=== PATIENT | male | born 1965 | race African-American/Black ===

== ENCOUNTER 2018-04-08 17:32 | Inpatient (IN) | payer OTHER ==
[2018-04-08 17:51] VITALS: BMI 22.8
--- NOTE | 2018-04-08 18:43 | HP ---
CIWA Score Nausea/Vomitin-Mild Nausea/No Vomiting Muscle Tremors: 4-Moderate,w/Arms Extend Anxiety: 2 Agitation: 2 Paroxysmal Sweats: 1-Minimal Palms Moist Orientation: 0-Oriented Tacttile Disturbances: 0-None Auditory Disturbances: 0-None Visual Disturbances: 0-None Headache: 2-Mild CIWA-Ar Total Score: 12 - Admission Criteria OASAS Guidelines: Admission for Medically Managed Detox: Requires at least one of the followin. CIWA greater than 12 2. Seizures within the past 24 hours 3. Delirium tremens within the past 24 hours 4. Hallucinations within the past 24 hours 5. Acute intervention needed for co occurring medical disorder 6. Acute intervention needed for co occurring psychiatric disorder 7. Severe withdrawal that cannot be handled at a lower level of care (continued vomiting, continued diarrhea, abnormal vital signs) requiring intravenous medication and/or fluids 8. Patient presents the following: CIWA greater than 12 Admission Criteria Met: Admission criteria met Admission ROS BHS - HPI Chief Complaint: Here for alcohol detox- no h/o seizures, DT's. Has been to detox and rehab for alcohol several times- last time 05/2017- at [facility] alcohol- drinks 4-5 pints of beth, last drink was today. Lives in [facility] Smokes cigs and occ cocaine No medical problems not on any meds DUR- shows no controlled substances Utox- negative for illicits EMELY- 0.190 Allergies/Adverse Reactions: Allergies Allergy/AdvReac Type Severity Reaction Status Date / Time No Known Drug Allergies Allergy Verified 08/28/15 14:10 pork derived (porcine) AdvReac Verified 08/28/15 14:10 seafood Allergy Uncoded 08/28/15 14:10 - Ebola screening Have you traveled outside of the country in the last 21 days: No Have you had contact with anyone from an Ebola affected area: No Have you been sick,other than usual withdrawal symptoms: No Do you have a fever: No Patient History - Patient Medical History Hx Anemia: No Hx Asthma: No Hx Chronic Obstructive Pulmonary Disease (COPD): No Hx Cancer: No Hx Cardiac Disorders: No Hx Congestive Heart Failure: No Hx Hypertension: Yes (NOT ON MEDS...NEVER FILLED RX) Hx Hypercholesterolemia: No Hx Pacemaker: No HX Cerebrovascular Accident: No Hx Seizures: No Hx Dementia: No Hx Diabetes: No Hx Gastrointestinal Disorders: No Hx Liver Disease: No Hx Genitourinary Disorders: No Hx Sexually Transmitted Disorders: No Hx Renal Disease (ESRD): No Hx Thyroid Disease: No Hx Human Immunodeficiency Virus (HIV): No (NEGATIVE HX) Hx Hepatitis C: No Hx Depression: No Hx Suicide Attempt: No (DENIES) Hx Bipolar Disorder: No Hx Schizophrenia: No - Patient Surgical History Past Surgical History: Yes Hx Neurologic Surgery: No Hx Cataract Extraction: No Hx Cardiac Surgery: No Hx Lung Surgery: No Hx Breast Surgery: No Hx Breast Biopsy: No Hx Abdominal Surgery: No Hx Appendectomy: No Hx Cholecystectomy: No Hx Genitourinary Surgery: No Hx Section: No Hx Orthopedic Surgery: No Other Surgical History: TONSILLECTOMY, BLEEDING ULCERS- 1999 - PPD History Documented Results: Negative w/o proof Date: 06/10/15 Results: 0 MM - Smoking Cessation Smoking history: Current every day smoker Have you smoked in the past 12 months: Yes Aproximately how many cigarettes per day: 20 Hx Chewing Tobacco Use: No Initiated information on smoking cessation: Yes 'Breaking Loose' booklet given: 04/09/18 - Substances Abused Alcohol Route: Oral Frequency: Daily Amount used: 1 PINT + 4/24OZ CAN BEER Age of first use: 12 Date of Last Use: 04/08/18 Family Disease History - Family Disease History Family History: Denies (denies family hx of med problems) Admission Physical Exam [facility] - Vital Signs Vital Signs: Vital Signs - 24 hr 04/08/18 17:50 Temperature 98.8 F Pulse Rate 97 H Respiratory 18 Rate Blood Pressure 140/103 H - Physical General Appearance: Yes: Within Normal Limits HEENTM: Yes: Within Normal Limits Respiratory: Yes: Within Normal Limits Neck: Yes: Within Normal Limits Cardiology: Yes: Within Normal Limits Abdominal: Yes: Within Normal Limits Genitourinary: Yes: Within Normal Limits Back: Yes: Within Normal Limits Musculoskeletal: Yes: Within Normal Limits Extremities: Yes: Within Normal Limits Neurological: Yes: Within Normal Limits Integumentary: Yes: Within Normal Limits Lymphatic: Yes: Within Normal Limits - Diagnostic (1) Alcohol dependence with uncomplicated withdrawal Current Visit: No Status: Acute (2) Cocaine dependence Current Visit: No Status: Acute Qualifiers: Substance use status: uncomplicated Qualified Code(s): F14.20 - Cocaine dependence, uncomplicated Cleared for Admission [facility] - Detox or Rehab [facility] Level of Care: Medically Managed [facility] Breath Alcohol Content Breath Alcohol Content: 0.190 Urine Drug Screen - Results Drug Screen Negative: Yes
[2018-04-08] MEDS ORDERED: chlordiazePOXIDE HCL 25 MG CAPSULE PO PRN (18:49)
[2018-04-08] MEDS ORDERED: ACETAMINOPHEN 325 MG TABLET (FP) PO PRN (18:51)
[2018-04-08] MEDS ORDERED: LOPERAMIDE HCL 2 MG CAPSULE PO PRN (18:51)
[2018-04-08] MEDS ORDERED: guaiFENesin/D-METHORPHAN HB 10 ML UNIT-DOSE CUPS PO PRN (18:51)
[2018-04-08] MEDS ORDERED: MENTHOL/PHENOL 1 EACH UD MM PRN (18:51)
[2018-04-08] MEDS ORDERED: P-EPHED 60MG/TRIPROLIDI 2.5MG TABLET PO PRN (18:51)
[2018-04-08] MEDS ORDERED: MAGNESIUM HYDROX 2400MG/30ML ORAL SUSPENSION 30 ML CUP PO PRN (18:51)
[2018-04-08] MEDS ORDERED: IBUPROFEN 400 MG TABLET (FP) PO PRN (18:51)
[2018-04-08] MEDS ORDERED: MAGNESIUM CITRATE 300 ML BOTTLE PO PRN (18:51)
[2018-04-08] MEDS ORDERED: hydrOXYzine PAMOATE 25 MG CAPSULE (FP) PO PRN (18:51)
[2018-04-08] MEDS ORDERED: MAG HYDROX/AL HYDROX/SIMETH 30 ML UNIT-DOSE CUP PO PRN (18:51)
[2018-04-08] MEDS: THIAMINE HCL 100 MG TABLET (FP) PO SCH (21:50)
[2018-04-08] MEDS ORDERED: MELATONIN 5 MG TABLETS PO PRN (22:00)
[2018-04-08] MEDS: chlordiazePOXIDE HCL 25 MG CAPSULE PO SCH (22:02)
[2018-04-09] MEDS: chlordiazePOXIDE HCL 25 MG CAPSULE PO SCH ×3 (05:14→17:29)
[2018-04-09] MEDS: PRENATAL VITAMINS W/ FOLIC ACID TABLET (FP) PO SCH (10:03)
[2018-04-09 10:17] LABS: URINE APPEARANCE CLEAR; URINE BILIRUBIN NEGATIVE (<2.0 mg/dL); URINE COLOR COLORLESS; URINE GLUCOSE (UA) NEGATIVE (NEGATIVE); URINE KETONE NEGATIVE (NEGATIVE); URINE LEUK ESTERASE NEGATIVE (NEGATIVE); URINE NITRITE NEGATIVE (NEGATIVE); URINE PROTEIN NEGATIVE (NEGATIVE); URINE UROBILINOGEN NEGATIVE mg/dL (0.2-1.0)
--- NOTE | 2018-04-09 10:22 | PN ---
BHS CIWA - CIWA Score Nausea/Vomitin Muscle Tremors: 2 Anxiety: 2 Agitation: 2 Paroxysmal Sweats: 1-Minimal Palms Moist Orientation: 0-Oriented Tacttile Disturbances: 1-Very Mild Itch/Numbness Auditory Disturbances: 1-Very Mild Visual Disturbances: 0-None Headache: 2-Mild CIWA-Ar Total Score: 13 BHS Progress Note (SOAP) Subjective: alert,irritable,anxious,interrupted sleep Objective: 04/09/18 10:22 Vital Signs Temperature 98.7 F 04/09/18 09:50 Pulse Rate 86 04/09/18 09:50 Respiratory Rate 16 04/09/18 09:50 Blood Pressure 133/79 04/09/18 09:50 O2 Sat by Pulse Oximetry (%) 04/09/18 10:22 labs pending Assessment: 04/09/18 10:28 withdrawal symptom Plan: continue detox
[2018-04-09 11:02] LABS: HEMATOCRIT 45.8 % (35.4-49); HEMOGLOBIN 14.7 GM/dL (11.7-16.9); MCH 29.5 pg (25.7-33.7); MCHC 32.1 g/dl (32.0-35.9); MEAN CELL VOLUME 91.7 fl (80-96); MEAN PLT VOLUME 7.9 fl (7.5-11.1); PLATELET COUNT 276 K/MM3 (134-434); RBC 4.99 M/mm3 (4.00-5.60); RDW 14.1 % (11.9-15.9); WHITE BLOOD COUNT 3.9 K/mm3 (4.0-10.0)
[2018-04-09 11:12] LABS: ALBUMIN 3.2 g/dl (3.4-5.0); ALK PHOS 71 U/L (45-117); ANION GAP 5 MMOL/L (8-16); BILIRUBIN,TOTAL 0.6 mg/dL (0.2-1); BLOOD UREA NITROGEN 12 mg/dL (7-18); CHLORIDE 111 mmol/L (98-107); CO2 26 mmol/L (21-32); GLUCOSE,RANDOM 71 mg/dL (74-106); POTASSIUM 4.3 mmol/L (3.5-5.1); SGOT/AST 22 U/L (15-37); SGPT/ALT 22 U/L (13-61); SODIUM 142 mmol/L (136-145); TOT PROT 5.8 g/dl (6.4-8.2)
[2018-04-09] MEDS: THIAMINE HCL 100 MG TABLET (FP) PO SCH (22:44)
[2018-04-09] MEDS: chlordiazePOXIDE 5 MG CAPSULE PO SCH (22:44)
[2018-04-10] MEDS: chlordiazePOXIDE 5 MG CAPSULE PO SCH ×4 (05:14→22:34)
[2018-04-10] MEDS: PRENATAL VITAMINS W/ FOLIC ACID TABLET (FP) PO SCH (10:15)
--- NOTE | 2018-04-10 12:06 | PN ---
[facility] CIWA - CIWA Score Nausea/Vomitin-No Nausea/No Vomiting Muscle Tremors: 3 Anxiety: 4-Mod. Anxious/Guarded Agitation: 3 Paroxysmal Sweats: 1-Minimal Palms Moist Orientation: 0-Oriented Tacttile Disturbances: 0-None Auditory Disturbances: 0-None Visual Disturbances: 0-None Headache: 0-None Present CIWA-Ar Total Score: 11 BHS Progress Note (SOAP) Subjective: REPORTS DETOX PROCEEDING WELL. TOLERATING MEDS WELL. SLIGHT TREMORS AND ANXIETY. Objective: 04/10/18 12:05 Vital Signs 04/10/18 06:08 Temperature 96.2 F L Pulse Rate 63 Respiratory 18 Rate Blood Pressure 160/106 H Laboratory Tests 04/08/18 04/09/18 04/09/18 08:00 07:00 07:00 WBC 3.9 L RBC 4.99 Hgb 14.7 Hct 45.8 MCV 91.7 MCH 29.5 MCHC 32.1 RDW 14.1 D Plt Count 276 MPV 7.9 Sodium 142 Potassium 4.3 Chloride 111 H Carbon Dioxide 26 Anion Gap 5 L BUN 12 Creatinine 1.0 Creat Clearance w eGFR > 60 Random Glucose 71 L Calcium 8.0 L Total Bilirubin 0.6 AST 22 ALT 22 Alkaline Phosphatase 71 Total Protein 5.8 L Albumin 3.2 L Urine Color Colorless Urine Appearance Clear Urine pH 5.0 Ur Specific Isabella 1.004 L Urine Protein Negative Urine Glucose (UA) Negative Urine Ketones Negative Urine Blood Negative Urine Nitrite Negative Urine Bilirubin Negative Urine Urobilinogen Negative Ur Leukocyte Esterase Negative RPR Titer HIV 1&2 Antibody Screen HIV P24 Antigen 04/09/18 04/09/18 07:00 07:00 WBC RBC Hgb Hct MCV MCH MCHC RDW Plt Count MPV Sodium Potassium Chloride Carbon Dioxide Anion Gap BUN Creatinine Creat Clearance w eGFR Random Glucose Calcium Total Bilirubin AST ALT Alkaline Phosphatase Total Protein Albumin Urine Color Urine Appearance Urine pH Ur Specific Isabella Urine Protein Urine Glucose (UA) Urine Ketones Urine Blood Urine Nitrite Urine Bilirubin Urine Urobilinogen Ur Leukocyte Esterase RPR Titer Nonreactive HIV 1&2 Antibody Screen Negative HIV P24 Antigen Negative Assessment: 04/10/18 12:05 WITHDRAWAL SX Plan: CONTINUE DETOX INCREASE PO FLUIDS
[2018-04-10] MEDS: THIAMINE HCL 100 MG TABLET (FP) PO SCH (22:34)
[2018-04-11] MEDS: chlordiazePOXIDE 5 MG CAPSULE PO SCH ×4 (05:14→22:12)
[2018-04-11] MEDS: PRENATAL VITAMINS W/ FOLIC ACID TABLET (FP) PO SCH (10:22)
--- NOTE | 2018-04-11 14:04 | PN ---
BHS Progress Note (SOAP) Subjective: Anxious, sweat Objective: 04/11/18 14:03 Last Vital Signs Temp Pulse Resp BP Pulse Ox 97.4 F L 79 18 130/85 04/11/18 11:01 04/11/18 11:01 04/11/18 11:01 04/11/18 11:01 Laboratory Tests 04/08/18 04/09/18 04/09/18 08:00 07:00 07:00 WBC 3.9 L RBC 4.99 Hgb 14.7 Hct 45.8 MCV 91.7 MCH 29.5 MCHC 32.1 RDW 14.1 D Plt Count 276 MPV 7.9 Sodium 142 Potassium 4.3 Chloride 111 H Carbon Dioxide 26 Anion Gap 5 L BUN 12 Creatinine 1.0 Creat Clearance w eGFR > 60 Random Glucose 71 L Calcium 8.0 L Total Bilirubin 0.6 AST 22 ALT 22 Alkaline Phosphatase 71 Total Protein 5.8 L Albumin 3.2 L Urine Color Colorless Urine Appearance Clear Urine pH 5.0 Ur Specific Mck[place] 1.004 L Urine Protein Negative Urine Glucose (UA) Negative Urine Ketones Negative Urine Blood Negative Urine Nitrite Negative Urine Bilirubin Negative Urine Urobilinogen Negative Ur Leukocyte Esterase Negative RPR Titer HIV 1&2 Antibody Screen HIV P24 Antigen 04/09/18 04/09/18 07:00 07:00 WBC RBC Hgb Hct MCV MCH MCHC RDW Plt Count MPV Sodium Potassium Chloride Carbon Dioxide Anion Gap BUN Creatinine Creat Clearance w eGFR Random Glucose Calcium Total Bilirubin AST ALT Alkaline Phosphatase Total Protein Albumin Urine Color Urine Appearance Urine pH Ur Specific [place] Urine Protein Urine Glucose (UA) Urine Ketones Urine Blood Urine Nitrite Urine Bilirubin Urine Urobilinogen Ur Leukocyte Esterase RPR Titer Nonreactive HIV 1&2 Antibody Screen Negative HIV P24 Antigen Negative Labs reviewed Assessment: 04/11/18 14:03 Withdrawal symptoms Plan: Continue detox Encouraged PO water intake Patient scheduled for discharge tomorrow
[2018-04-11] MEDS ORDERED: cloNIDine HCL 0.1 MG TABLET PO PRN (14:05)
[2018-04-11] MEDS: THIAMINE HCL 100 MG TABLET (FP) PO SCH (22:12)
[2018-04-12] MEDS: chlordiazePOXIDE 5 MG CAPSULE PO SCH ×2 (05:15→10:17)
--- NOTE | 2018-04-12 09:05 | DS ---
[facility] Detox Discharge Summary Admission Date: 04/08/18 Discharge Date: 04/12/18 - History Present History: Alcohol Dependence Additional Comments: 52 years old male admitted on 04/08/18 for alcohol withdrawal stabilization completed detox regimen alert aftercare [facility] Physical Exam Results Vital Signs: Vital Signs Temperature 96.4 F L 04/12/18 06:28 Pulse Rate 70 04/12/18 06:28 Respiratory Rate 18 04/12/18 06:28 Blood Pressure 139/95 04/12/18 06:28 O2 Sat by Pulse Oximetry (%) Pertinent Admission Physical Exam Findings: alcohol withdrawal sx Vital Signs Temperature 96.0 F L 04/12/18 09:18 Pulse Rate 87 04/12/18 09:18 Respiratory Rate 18 04/12/18 09:18 Blood Pressure 130/90 04/12/18 09:18 O2 Sat by Pulse Oximetry (%) Laboratory Last Values WBC 3.9 K/mm3 (4.0-10.0) L 04/09/18 07:00 RBC 4.99 M/mm3 (4.00-5.60) 04/09/18 07:00 Hgb 14.7 GM/dL (11.7-16.9) 04/09/18 07:00 Hct 45.8 % (35.4-49) 04/09/18 07:00 MCV 91.7 fl (80-96) 04/09/18 07:00 MCH 29.5 pg (25.7-33.7) 04/09/18 07:00 MCHC 32.1 g/dl (32.0-35.9) 04/09/18 07:00 RDW 14.1 % (11.9-15.9) D 04/09/18 07:00 Plt Count 276 K/MM3 (134-434) 04/09/18 07:00 MPV 7.9 fl (7.5-11.1) 04/09/18 07:00 Sodium 142 mmol/L (136-145) 04/09/18 07:00 Potassium 4.3 mmol/L (3.5-5.1) 04/09/18 07:00 Chloride 111 mmol/L (98-107) H 04/09/18 07:00 Carbon Dioxide 26 mmol/L (21-32) 04/09/18 07:00 Anion Gap 5 MMOL/L (8-16) L 04/09/18 07:00 BUN 12 mg/dL (7-18) 04/09/18 07:00 Creatinine 1.0 mg/dL (0.55-1.3) 04/09/18 07:00 Creat Clearance w eGFR > 60 (>60) 04/09/18 07:00 Random Glucose 71 mg/dL (74-106) L 04/09/18 07:00 Calcium 8.0 mg/dL (8.5-10.1) L 04/09/18 07:00 Total Bilirubin 0.6 mg/dL (0.2-1) 04/09/18 07:00 AST 22 U/L (15-37) 04/09/18 07:00 ALT 22 U/L (13-61) 04/09/18 07:00 Alkaline Phosphatase 71 U/L (45-117) 04/09/18 07:00 Total Protein 5.8 g/dl (6.4-8.2) L 04/09/18 07:00 Albumin 3.2 g/dl (3.4-5.0) L 04/09/18 07:00 Urine Color Colorless 04/08/18 08:00 Urine Appearance Clear 04/08/18 08:00 Urine pH 5.0 (5.0-8.0) 04/08/18 08:00 Ur Specific [place] 1.004 (1.010-1.035) L 04/08/18 08:00 Urine Protein Negative (NEGATIVE) 04/08/18 08:00 Urine Glucose (UA) Negative (NEGATIVE) 04/08/18 08:00 Urine Ketones Negative (NEGATIVE) 04/08/18 08:00 Urine Blood Negative (NEGATIVE) 04/08/18 08:00 Urine Nitrite Negative (NEGATIVE) 04/08/18 08:00 Urine Bilirubin Negative (<2.0 mg/dL) 04/08/18 08:00 Urine Urobilinogen Negative mg/dL (0.2-1.0) 04/08/18 08:00 Ur Leukocyte Esterase Negative (NEGATIVE) 04/08/18 08:00 RPR Titer Nonreactive (NONREACTIVE) 04/09/18 07:00 HIV 1&2 Antibody Screen Negative 04/09/18 07:00 HIV P24 Antigen Negative 04/09/18 07:00 lab noted - Treatment Hospital Course: Detox Protocol Followed, Detoxed Safely, Responded well, Discharged Condition Good, Rehab Referral Accepted Patient has Accepted a Rehab Referral to: [facility] - Medication Discharge Medications: Ambulatory Orders NK [No Known Home Medication] 06/08/15 - Diagnosis (1) Alcohol dependence with uncomplicated withdrawal Current Visit: Yes Status: Acute (2) HTN (hypertension), benign Current Visit: Yes Status: Chronic (3) Nicotine dependence Current Visit: Yes Status: Chronic Qualifiers: Nicotine product type: cigarettes Substance use status: in withdrawal Qualified Code(s): F17.213 - Nicotine dependence, cigarettes, with withdrawal - AMA Did Patient Leave Against Medical Advice: No
[2018-04-12 09:19] VITALS: BP 130/90; PULSE 87; TEMP 96
[2018-04-12] MEDS: PRENATAL VITAMINS W/ FOLIC ACID TABLET (FP) PO SCH (10:17)
== END 2018-04-12 12:30 | disposition home or self-care (01) | DRG 774 ==
LOC: YASAS 17:32 → Y3N 19:56
PROC: HZ2ZZZZ Detoxification Services for Substance Abuse Treatment (ICD-10-PCS; principal; 2018-04-08)
DX: F10.230 Alcohol dependence with withdrawal, uncomplicated (principal); F14.20 Cocaine dependence, uncomplicated; F17.213 Nicotine dependence, cigarettes, with withdrawal; I10 Essential (primary) hypertension
CPT/HCPCS: 36415; 80053; 81003; 85027; 86593; 87389; J0735

== ENCOUNTER 2018-04-12 12:47 | Inpatient (IN) | payer OTHER ==
--- NOTE | 2018-04-12 10:13 | HP ---
[facility] Rehab Assess/Revision - Admission History Admitted to Rehab from: [facility] Date of Admission to Rehab: 04/11/18 - Findings Detox History & Physical reviewed: Yes Concur with findings: Yes Comments/Additional Findings: transferred from detox to rehab admission as per protocol Inpatient Rehab Admission - Initial Determination Are CD services needed?: Yes Free of communicable disease: Yes Not in need of hospitalization: Yes - Rehab Admission Criteria Previous failed treatment: Yes Poor recovery environment: Yes Comorbidities: Yes Lacks judgement: No Patient is meeting Inpatient Rehab admission criteria:: Yes
[~2018-04-12 12:47] MED LIST: ACETAMINOPHEN 325 MG TABLET (FP) PO PRN; IBUPROFEN 400 MG TABLET (FP) PO PRN; LOPERAMIDE HCL 2 MG CAPSULE PO PRN; MAG HYDROX/AL HYDROX/SIMETH 30 ML UNIT-DOSE CUP PO PRN; MAGNESIUM CITRATE 300 ML BOTTLE PO PRN; MAGNESIUM HYDROX 2400MG/30ML ORAL SUSPENSION 30 ML CUP PO PRN; MENTHOL/PHENOL 1 EACH UD MM PRN; NICOTINE POLACRILEX 2 MG GUM BUC PRN; P-EPHED 60MG/TRIPROLIDI 2.5MG TABLET PO PRN; guaiFENesin/D-METHORPHAN HB 10 ML UNIT-DOSE CUPS PO PRN
[2018-04-12] MEDS ORDERED: NICOTINE 14 MG/24 HOURS TOPICAL PATCH TD PRN (13:00)
[2018-04-12] MEDS: THIAMINE HCL 100 MG TABLET (FP) PO SCH (21:56)
[2018-04-12] MEDS ORDERED: MELATONIN 5 MG TABLETS PO PRN (22:00)
[2018-04-13] MEDS: PRENATAL VITAMINS W/ FOLIC ACID TABLET (FP) PO SCH (10:49)
--- NOTE | 2018-04-13 17:48 | HP ---
Psychiatrist Admission - Data Date of interview: 04/13/18 Admission source: [facility] Identifying data: Patient is a 52 year old male, father of two, unemployed, homeless, and is supported by public assistance. This is patient's first admission to rehab at [facility]. Patient admitted to for alcohol dependence. Medical History: hypertension, Tonsillectomy, Bleeding ulcers- 1999 Psychiatric History: Patient denies h/o psychiatric hospitalization, outpatient care, and suicide attempt. Physical/Sexual Abuse/Trauma History: denies. Vital Signs: Vital Signs - 24 hr 04/13/18 04/13/18 04/13/18 00:30 03:30 07:03 Temperature 98.0 F Pulse Rate 74 Respiratory 18 18 16 Rate Blood Pressure 139/90 Allergies/Adverse Reactions: Allergies Allergy/AdvReac Type Severity Reaction Status Date / Time No Known Drug Allergies Allergy Verified 08/28/15 14:10 pork derived (porcine) AdvReac Verified 04/12/18 14:06 seafood Allergy Uncoded 08/28/15 14:10 Date of last physical exam: 04/08/18 Concur with the findings of this exam: Yes - Substance Abuse/Tx History Hx Alcohol Use: Yes (1 pint + 24 ounce of beer daily) Hx Substance Use: No Hx Substance Use Treatment: Yes ([facility]) Mental Status Exam - Mental Status Exam Alert and Oriented to: Time, Place, Person Cognitive Function: Good Patient Appearance: Well Groomed Mood: Hopeful Affect: Appropriate Patient Behavior: Appropriate, Cooperative Speech Pattern: Clear, Appropriate Voice Loudness: Normal Thought Process: Intact, Goal Oriented Thought Disorder: Not Present Hallucinations: Denies Suicidal Ideation: Denies Homicidal Ideation: Denies Insight/Judgement: Poor Sleep: Fair Appetite: Fair Muscle strength/Tone: Normal Gait/Station: Normal Psychiatric Findings - Problem List ([place] 1, 2,3) (1) Alcohol dependence Current Visit: Yes Status: Acute - Initial Treatment Plan Initial Treatment Plan: Psychoeducation provided. Rehab in progress. Observation.
[2018-04-13] MEDS: THIAMINE HCL 100 MG TABLET (FP) PO SCH (21:53)
[2018-04-14] MEDS: PRENATAL VITAMINS W/ FOLIC ACID TABLET (FP) PO SCH (10:39)
[2018-04-14] MEDS ORDERED: amLODIPine BESYLATE 5 MG TABLET (FP) PO SCH (12:45)
--- NOTE | 2018-04-14 12:50 | PN ---
[facility] Progress Note Note: PT REPORTS HE WAS ON BP MED YEARS AGO DUE TO ON/OFF ELEVATED BP AND WAS STARTED ON 5 MG(DOES NOT REMEMBER THE NAME) FOR FOR A START. WOULD LIKE TO RESTART ON BP MED. PT STATES HE IS UNABLE TO PRONOUNCE HIS DOCTOR'S NAME BUT ON HIS INSURANCE CARD NOT WITH HIM THIS MOMENT. REPORTS SHE IS ON [facility] [employer]. Vital Signs - 24 hr 04/14/18 04/14/18 04/14/18 00:30 03:30 06:56 Temperature 97.4 F L Pulse Rate 71 Respiratory 18 18 18 Rate Blood Pressure 144/98 Initial Vital Signs Temp Pulse Resp BP 98.8 F 78 18 138/96 04/12/18 13:59 04/12/18 13:59 04/12/18 13:59 04/12/18 13:59 NAD HX HTN PLAN:NORVASC 5 MG PO DAILY MONITOR PT'S BP FOLLOW UP WITH PMD ON [facility] AFTER REHAB FOR MEDICAL MANGEMENT.
[2018-04-14] MEDS ORDERED: cloNIDine HCL 0.1 MG TABLET PO ONE (16:45)
[2018-04-14] MEDS: THIAMINE HCL 100 MG TABLET (FP) PO SCH (21:47)
[2018-04-15] MEDS: amLODIPine BESYLATE 10 MG TABLET (FP) PO SCH (11:00)
[2018-04-15] MEDS: PRENATAL VITAMINS W/ FOLIC ACID TABLET (FP) PO SCH (11:00)
[2018-04-15] MEDS: THIAMINE HCL 100 MG TABLET (FP) PO SCH (22:04)
[2018-04-16] MEDS: PRENATAL VITAMINS W/ FOLIC ACID TABLET (FP) PO SCH (11:17)
[2018-04-16] MEDS: amLODIPine BESYLATE 10 MG TABLET (FP) PO SCH (11:18)
[2018-04-16] MEDS: THIAMINE HCL 100 MG TABLET (FP) PO SCH (21:59)
[2018-04-17] MEDS: amLODIPine BESYLATE 10 MG TABLET (FP) PO SCH (10:29)
[2018-04-17] MEDS: PRENATAL VITAMINS W/ FOLIC ACID TABLET (FP) PO SCH (10:29)
[2018-04-17] MEDS: THIAMINE HCL 100 MG TABLET (FP) PO SCH (22:01)
[2018-04-18] MEDS: PRENATAL VITAMINS W/ FOLIC ACID TABLET (FP) PO SCH (10:31)
[2018-04-18] MEDS: amLODIPine BESYLATE 10 MG TABLET (FP) PO SCH (10:31)
[2018-04-18] MEDS: THIAMINE HCL 100 MG TABLET (FP) PO SCH (22:15)
[2018-04-19] MEDS: amLODIPine BESYLATE 10 MG TABLET (FP) PO SCH (11:24)
[2018-04-19] MEDS: PRENATAL VITAMINS W/ FOLIC ACID TABLET (FP) PO SCH (11:24)
[2018-04-19] MEDS: THIAMINE HCL 100 MG TABLET (FP) PO SCH (21:53)
[2018-04-20] MEDS: PRENATAL VITAMINS W/ FOLIC ACID TABLET (FP) PO SCH (10:31)
[2018-04-20] MEDS: amLODIPine BESYLATE 10 MG TABLET (FP) PO SCH (10:31)
[2018-04-20] MEDS: THIAMINE HCL 100 MG TABLET (FP) PO SCH (21:58)
[2018-04-21] MEDS ORDERED: COLLOIDAL OATMEAL 1 BAR EACH TP PRN (08:24)
[2018-04-21] MEDS: PRENATAL VITAMINS W/ FOLIC ACID TABLET (FP) PO SCH (10:34)
[2018-04-21] MEDS: amLODIPine BESYLATE 10 MG TABLET (FP) PO SCH (10:34)
[2018-04-21] MEDS: THIAMINE HCL 100 MG TABLET (FP) PO SCH (21:43)
[2018-04-22] MEDS: amLODIPine BESYLATE 10 MG TABLET (FP) PO SCH (10:44)
[2018-04-22] MEDS: PRENATAL VITAMINS W/ FOLIC ACID TABLET (FP) PO SCH (10:44)
[2018-04-22] MEDS: THIAMINE HCL 100 MG TABLET (FP) PO SCH (21:54)
[2018-04-23] MEDS: PRENATAL VITAMINS W/ FOLIC ACID TABLET (FP) PO SCH (10:28)
[2018-04-23] MEDS: amLODIPine BESYLATE 10 MG TABLET (FP) PO SCH (10:28)
[2018-04-23] MEDS: THIAMINE HCL 100 MG TABLET (FP) PO SCH (22:01)
[2018-04-24] MEDS: PRENATAL VITAMINS W/ FOLIC ACID TABLET (FP) PO SCH (10:21)
[2018-04-24] MEDS: amLODIPine BESYLATE 10 MG TABLET (FP) PO SCH (10:21)
[2018-04-24] MEDS: THIAMINE HCL 100 MG TABLET (FP) PO SCH (22:00)
[2018-04-25] MEDS: amLODIPine BESYLATE 10 MG TABLET (FP) PO SCH (10:33)
[2018-04-25] MEDS: PRENATAL VITAMINS W/ FOLIC ACID TABLET (FP) PO SCH (10:33)
[2018-04-25] MEDS: THIAMINE HCL 100 MG TABLET (FP) PO SCH (21:44)
[2018-04-26 06:56] VITALS: PULSE 89
[2018-04-26] MEDS: amLODIPine BESYLATE 10 MG TABLET (FP) PO SCH (10:17)
[2018-04-26] MEDS: PRENATAL VITAMINS W/ FOLIC ACID TABLET (FP) PO SCH (10:17)
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
[2018-04-26] MEDS: METHYL SALICYLATE/MENTHOL OINT 30 GM TUBE TP SCH ×2 (14:19→22:08)
[2018-04-26] MEDS: THIAMINE HCL 100 MG TABLET (FP) PO SCH (22:08)
[2018-04-27 07:12] VITALS: BP 125/81; TEMP 98.4
--- NOTE | 2018-04-27 09:20 | PN ---
Psychiatric Progress Note Vital Signs: Vital Signs Period Temp Pulse Resp BP Sys/Schrader Pulse Ox Last 24 Hr 98.4 F 89 17-18 125/81 Date of Session: 04/27/18 Chief Complaint:: Discharge Note HPI: Patient addressing Alcohol Dependence comorbid with Nicotine Dependence ROS: HTN Current Medications: Active Medications Generic Name Dose Route Start Last Admin Trade Name Freq PRN Reason Stop Dose Admin Acetaminophen 650 mg 04/12/18 10:13 Tylenol - PO Q4H PRN FEVER Al Hydroxide/Mg Hydroxide 30 ml 04/12/18 10:13 Mylanta Oral Suspension - PO Q6H PRN DYSPEPSIA Amlodipine Besylate 10 mg 04/15/18 10:00 04/26/18 10:17 Norvasc - PO 10 mg DAILY MADISON Administration Eucalyptus/Menthol/Phenol/Sorbitol 1 each 04/12/18 10:13 Cepastat Lozenge - MM Q4H PRN SORE THROAT Guaifenesin 10 ml 04/12/18 10:13 Robitussin Dm - PO Q6H PRN COUGH Ibuprofen 400 mg 04/12/18 10:13 04/26/18 11:46 Motrin - PO 400 mg Q6H PRN Administration Pain Level 4-6 Loperamide HCl 4 mg 04/12/18 10:13 Imodium - PO Q6H PRN DIARRHEA Magnesium Citrate 300 ml 04/12/18 10:13 Citroma - PO Q48H PRN CONSTIPATION Magnesium Hydroxide 30 ml 04/12/18 10:13 Milk Of Magnesia - PO DAILY PRN CONSTIPATION Melatonin 5 mg 04/12/18 22:00 Melatonin PO HS PRN INSOMNIA Methyl Salicylate 1 applic 04/26/18 13:00 04/26/18 22:08 Shahzad-Ambrose - TP Not Given BID MADISON Nicotine 14 mg 04/12/18 13:00 Nicoderm Patch - TD DAILY PRN WITHDRAWAL(CONT SUBST) Nicotine Polacrilex 2 mg 04/12/18 10:13 Nicorette Gum - BUC Q2H PRN NICOTINE REPLACEMENT RX Multivit/Folic Acid/Iron 1 tab 04/13/18 10:00 04/26/18 10:17 Vitamins (Sjr) - PO 1 tab DAILY MADISON Administration Pseudoephedrine/Triprolidine 1 combo 04/12/18 10:13 Actifed - PO TID PRN NASAL CONGESTION Thiamine HCl 100 mg 04/12/18 22:00 04/26/18 22:08 Vitamin B1 - PO 100 mg HS MADISON Administration Current Side Effect: No Lab tests ordered: Yes Lab tests reviewed: Yes Provider note:: Patient has completed this program today. He has met his treatment goals and will continue to address his issues in vinyl cutter treatment at [facility] at [address] [place] [address]. Told screen writer that from his participation in this program, he has learned. He is stable for discharge today Total face to face time:: 35 Mental Status Exam - Mental Status Exam Alert and Oriented to: Time, Place, Person Cognitive Function: Fair Patient Appearance: Well Groomed Mood: Hopeful, Euthymic Affect: Appropriate Patient Behavior: Cooperative Speech Pattern: Clear Voice Loudness: Normal Thought Process: Intact, Goal Oriented Thought Disorder: Not Present Hallucinations: Denies Suicidal Ideation: Denies Homicidal Ideation: Denies Insight/Judgement: Fair Sleep: Fair Appetite: Good Muscle strength/Tone: Normal Gait/Station: Normal Psychiatric Treatment Plan - Problem List (1) Alcohol dependence Current Visit: Yes (2) Nicotine dependence Current Visit: No Qualifiers: Nicotine product type: cigarettes Substance use status: in withdrawal Qualified Code(s): F17.213 - Nicotine dependence, cigarettes, with withdrawal (3) HTN (hypertension), benign Current Visit: Yes Initial treatment plan: Patient is discharged today and referred to [facility] for vinyl cutter residential treatment
[2018-04-27] MEDS: METHYL SALICYLATE/MENTHOL OINT 30 GM TUBE TP SCH (09:34)
[2018-04-27] MEDS: amLODIPine BESYLATE 10 MG TABLET (FP) PO SCH (09:34)
[2018-04-27] MEDS: PRENATAL VITAMINS W/ FOLIC ACID TABLET (FP) PO SCH (09:35)
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
== END 2018-04-27 10:10 | disposition home or self-care (01) | DRG 772 ==
LOC: YASAS 12:47 → Y5N 12:48
PROVIDERS: ADMIT Psychiatry & Neurology Psychiatry; ATTEND Psychiatry & Neurology Psychiatry
PROC: HZ42ZZZ Group Counseling for Substance Abuse Treatment, Cognitive-Behavioral (ICD-10-PCS; principal; 2018-04-12)
DX: F10.20 Alcohol dependence, uncomplicated (principal); F17.210 Nicotine dependence, cigarettes, uncomplicated; I10 Essential (primary) hypertension; S92.512A Displaced fracture of proximal phalanx of left lesser toe(s), initial encounter for closed fracture; W22.03XA Walked into furniture, initial encounter; Y93.89 Activity, other specified; Y92.238 Other place in hospital as the place of occurrence of the external cause
CPT/HCPCS: 73660-TC-LT-FY; J0735